=== PATIENT | male | born 1990 | race African-American/Black ===

== ENCOUNTER 2017-03-08 05:51 | Day surgery (SDC) | payer OTHER ==
[2017-03-08] VITALS (10 sets, daily range): BP systolic 85–128; BP diastolic 49–66; PULSE 68–92; RESP 0–26; Ht 191.8 cm; Wt 142.2 kg
[~2017-03-08] VITALS: Ht 191.8 cm; Wt 142.2 kg
[2017-03-08 06:34] LABS: ADD SCAN DIFF NO
[2017-03-08 06:37] LABS: BASOPHILS % 0.4 % (0.0-2.0); EOSINOPHILS # 0.1 10^3/ul (0.0-0.5); EOSINOPHILS % 1.6 % (0.0-7.0); HEMATOCRIT 43.3 % (42.0-52.0); LYMPHOCYTES # 3.8 10^3/ul (0.8-2.9); LYMPHOCYTES % 42.1 % (15.0-51.0); MEAN CORPUSCULAR HEMOGLOBIN 28.7 pg (29.0-33.0); MEAN CORPUSCULAR HGB CONC 32.3 g/dl (32.0-37.0); MEAN CORPUSCULAR VOLUME 88.9 fl (82.0-101.0); MONOCYTE # 0.6 10^3/ul (0.3-0.9); MONOCYTES % 6.2 % (0.0-11.0); NEUTROPHIL # 4.5 10^3/ul (1.6-7.5); NEUTROPHILS % 49.4 % (39.0-77.0); PLATELET COUNT 231 10^3/UL (140-415); RED BLOOD COUNT 4.87 10^6/ul (4.70-6.10); RED CELL DISTRIBUTION WIDTH 13.3 % (11.5-14.5)
[2017-03-08] MEDS ORDERED: BUPIVACAINE 0.25%/EPI (SDV) 30 ML INJ ONE (06:56)
[2017-03-08] MEDS ORDERED: LIDOCAINE 1% (MPF) 30 ML INJ ONE (06:56)
[2017-03-08 06:58] LABS: INR 0.84; PROTIME 11.5 Sec (12.2-14.2); PT RATIO 0.9
[2017-03-08 06:59] LABS: PARTIAL THROMBOPLASTIN TIME 31.5 Sec (25.0-35.0)
[2017-03-08 07:00] LABS: ALBUMIN 4.5 g/dl (3.3-4.9); ALBUMIN/GLOBULIN RATIO 1.55; BILIRUBIN,INDIRECT 0.1 mg/dl (0-1.1); BILIRUBIN,TOTAL 0.1 mg/dl (0.2-1.3); TOTAL PROTEIN 7.4 g/dl (6.1-8.1)
[2017-03-08 07:02] LABS: CALCIUM 9.2 mg/dl (8.4-10.2); CREATININE 1.09 mg/dl (0.61-1.24)
[2017-03-08] MEDS ORDERED: MIDAZOLAM 1 MG/ML 2 ML INJ ONE (07:21)
[2017-03-08] MEDS ORDERED: PROPOFOL 40 ML ONE (07:21)
[2017-03-08] MEDS ORDERED: FENTAnyl 50 MCG/ML VIAL ONE ×2 (07:21→09:03)
--- NOTE | 2017-03-08 07:37 | HPN ---
Date/Time of Note Date/Time of Note DATE: 03/08/17 TIME: 07:36 Interval H&P Admission Note Pt. seen H&P reviewed: No system changes DUONG VILLASEÑOR MD March 08, 2017 07:37
[2017-03-08] MEDS ORDERED: LACTATED RINGER'S 1,000 ML IV* SCH (08:00)
[2017-03-08] MEDS ORDERED: CIPROFLOXACIN 400 MG in D5W 200 ML IVPB SCH (08:00)
[2017-03-08] MEDS ORDERED: CEFAZOLIN 1 GM INJ ONE (08:03)
[2017-03-08] MEDS ORDERED: LIDOCAINE 2%/EPI 30 ML INJ ONE (08:10)
[2017-03-08] MEDS ORDERED: GENTAMICIN 80 MG/NS (PMX) 50 ML ONE (08:19)
[2017-03-08] MEDS ORDERED: KETOROLAC 30 MG INJ ONE (08:39)
[2017-03-08] MEDS ORDERED: METOCLOPRAMIDE 10 MG INJ ONE (08:39)
[2017-03-08] MEDS ORDERED: ONDANSETRON 4 MG INJ ONE (08:39)
[2017-03-08] MEDS ORDERED: DEXAMETHASONE 4 MG/ML 1 ML INJ ONE (08:39)
[2017-03-08] MEDS ORDERED: EPHEDrine SULFATE 50 MG/5 ML SYG IV PRN (09:00)
[2017-03-08] MEDS ORDERED: METOCLOPRAMIDE 10 MG INJ IV PRN (09:00)
[2017-03-08] MEDS ORDERED: DIPHENHYDRAMINE 50 MG INJ IV PRN (09:00)
[2017-03-08] MEDS ORDERED: HYDROmorphONE (0.2 MG/ML) 10ML SYG IV PRN ×3 (09:00)
[2017-03-08] MEDS ORDERED: MEPERIDINE 25 MG INJ IV PRN (09:00)
[2017-03-08] MEDS ORDERED: morphine (1 MG/ML) 10ML SYRINGE IV PRN ×3 (09:00)
[2017-03-08] MEDS ORDERED: OXYCODONE/ACETAMINOPHEN (5/325) TAB PO PRN ×2 (09:00)
[2017-03-08] MEDS ORDERED: LABETALOL HCL 20MG INJ IV PRN (09:00)
[2017-03-08] MEDS ORDERED: ONDANSETRON 4 MG INJ IV PRN ×2 (09:00→10:00)
[2017-03-08] MEDS ORDERED: LACTATED RINGER'S 1,000 ML IV SCH ×2 (09:50)
[2017-03-08] MEDS ORDERED: SUCCINYLCHOLINE CHLORIDE 100 MG/5 ML SYG IV ONE (09:55)
[2017-03-08] MEDS ORDERED: morphine 2 MG INJ IV PRN (10:00)
[2017-03-08] MEDS ORDERED: HYDROCODONE/APAP (5/325) TAB PO PRN ×2 (10:00)
--- NOTE | 2017-03-09 07:29 | OPR ---
DATE OF OPERATION: 03/08/2017 SURGEON: Dutch Villaseñor MD AUTOMOTIVE CONSULTANT: None. ANESTHESIA: General and local. ANESTHESIOLOGIST: Dr. Issa PREOPERATIVE DIAGNOSIS: Subcutaneous mass, right shoulder area. POSTOPERATIVE DIAGNOSIS: Subcutaneous mass, right shoulder area, pending pathology report. PROCEDURE: Wide excision of the firm mass. ESTIMATED BLOOD LOSS: 5 mL. INDICATION: This is a 26-year-old gentleman who presented to the office because he felt a mass in the right shoulder area. Mother stated that it has been there for a while, but they think that it has been growing recently, with some discomfort, so patient wanted that to be removed just to be on the safe side. On physical examination it was around 3x3 cm, firm mass resembling, to my clinical judgment, a dermoid cyst, so I requested a CT scan of the shoulder and it reported that there is no connection to the muscle and its subcutaneous tissue, so I decided to remove it. Discussed with the patient the alternatives of treatment, risks and benefits of operation, possible complications including but not limited to bleeding, chronic pain, need for further operation in future in the case this proves to be something unexpected, and deformity of the area, especially that the patient has tattoos over this. The patient and mother understood, accepted that we would proceed with operation. PROCEDURE IN DETAIL: The patient brought to the operating room, placed on operating table in supine position. Anesthesia was induced by the anesthesiologist, 2 grams of Ancef and 80 mg of gentamicin was given IV by the anesthesiologist. Position of the patient was changed to a slightly left down decubitus. The area of operation was prepped with chlora solution, draped in a sterile fashion. All through the operation, a mixture of 30 mL of 0.25% Marcaine with epinephrine, plus 20 mL of 2% Xylocaine with epinephrine was used. After thorough examination under anesthesia, decision was made to make the incision transversely, though I told the patient before that most probably I am going to make a longitudinal, but it appeared that this is going to be easier for removing the tumor, so transverse skin incision was made about 7 cm. Local injection was used, carried down to the subcutaneous tissue and as I tried to make a superior flap to go around the mass, it was very easy to put a finger around it and looked that it was enucleated from the capsule or pseudocapsule that was surrounding it; so anyway, the core of the mass was completely removed easily. It was oriented, inferior border, anterior border, medial border, were sent for pathologic evaluation. As I further examined the area, I felt that there was more of the mass left in the area which probably was broken off from the bulk of the mass; so further excision going all around the superior, inferior, medial and lateral borders was performed and a kind of capsule of the previously mentioned mass was excised posteriorly, it was down to the fascia of the deltoid muscle. At this time, I requested pathologist to come in to give some guidance. Dr. Gonzalez, pathologist, walked in; I showed him the mass. I requested frozen section. He stated that it is better to do permanent because a frozen section for these soft tissue tumors is not going to be of that much of helpful. Therefore, I irrigated the wound and inspected more. There was inferiorly an area of fat; did not look like the normal fat, so I excised that part, too and marked it as an inferolateral margin of the mass and oriented, and was sent for pathologic evaluation; therefore, we had 3 samples, A, B and C for evaluation. The A was CORE of the tumor; the B was the surrounding of the tumor and C was the inferolateral margin of the area. Wound was thoroughly irrigated. More local anesthetic was injected under the fascia of the muscle and all around the tissues. Local flap advancement was developed to help approximation of the wound. It appeared that I could not do a 2-layer closure; therefore, a Phoenix-Carrillo drain was introduced through the separate skin incision inferior to the wound and was placed under the skin. It should be mentioned that some of the defect after removing the tumor, because the tumor was about 3 x 4 x 4 cm, and the patient is very muscular, and other parts of the arm tissues, the skin has about 3 to 4 cm subcutaneous fat; therefore, I mobilized superior and inferior flaps locally and advanced it, so that it could be closed easily and so the skin could reach down to the fascia. After preparation was made, the skin was closed in 1 layer using Prolene vertical mattress, simple and interrupted, alternative sutures were placed, and at the end the Phoenix-Carrillo was activated and bulky dressing was applied and pushed down just to help the skin reach down to the bottom of the cavity of the tumor. The patient tolerated procedure well. Sponge, needle and instrument count reported correct x2. Estimated blood loss 5 mL. The bulky dressing was applied. Patient was extubated and transferred to recovery room in stable condition. Dictated By: DUTCH VILLASEÑOR MD PS/JACK Conf#: [id number] DID#: [id number] MTDD
== END 2017-03-08 11:50 | disposition home or self-care (01) ==
LOC: SDS 05:51
DX: C49.11 Malignant neoplasm of connective and soft tissue of right upper limb, including shoulder (principal)
CPT/HCPCS: 23071; 80053; 85025; 85610; 85730; 88307; 88341; 88342; J0690; J1100; J1580; J1885; J2250; J2405; J2765; J3010; J7999; Z7512; Z7610

== ENCOUNTER 2017-04-28 05:54 | Day surgery (SDC) | payer OTHER ==
[2017-04-28] VITALS (8 sets, daily range): BP systolic 130–155; BP diastolic 65–124; PULSE 68–104; RESP 14–20; Ht 190.5 cm; Wt 146.0 kg
[~2017-04-28] VITALS: Ht 190.5 cm; Wt 146.0 kg
[2017-04-28] MEDS ORDERED: SOD CHLORIDE 0.9% 1,000 ML IV SCH (07:00)
[2017-04-28] MEDS ORDERED: CEFAZOLIN 1 GM INJ ONE ×2 (07:00→09:25)
[2017-04-28] MEDS ORDERED: SUCCINYLCHOLINE CHLORIDE 100 MG/5 ML SYG IV ONE (07:00)
[2017-04-28 08:20] LABS: ADD SCAN DIFF NO
[2017-04-28 08:36] LABS: BASOPHILS % 0.4 % (0.0-2.0); EOSINOPHILS # 0.2 10^3/ul (0.0-0.5); EOSINOPHILS % 2.2 % (0.0-7.0); HEMATOCRIT 40.8 % (42.0-52.0); HEMOGLOBIN 13.3 g/dl (14.0-18.0); LYMPHOCYTES # 2.9 10^3/ul (0.8-2.9); LYMPHOCYTES % 39.9 % (15.0-51.0); MEAN CORPUSCULAR HGB CONC 32.6 g/dl (32.0-37.0); MEAN CORPUSCULAR VOLUME 88.9 fl (82.0-101.0); MEAN PLATELET VOLUME 10.6 fl (7.4-10.4); MONOCYTE # 0.4 10^3/ul (0.3-0.9); NEUTROPHIL # 3.8 10^3/ul (1.6-7.5); NEUTROPHILS % 51.2 % (39.0-77.0); PLATELET COUNT 232 10^3/UL (140-415); RED BLOOD COUNT 4.59 10^6/ul (4.70-6.10); RED CELL DISTRIBUTION WIDTH 13.5 % (11.5-14.5); WHITE BLOOD COUNT 7.3 10^3/ul (4.8-10.8)
[2017-04-28 08:46] LABS: ALBUMIN 3.8 g/dl (3.3-4.9); ALBUMIN/GLOBULIN RATIO 1.18; BILIRUBIN,INDIRECT 0.1 mg/dl (0-1.1); BILIRUBIN,TOTAL 0.1 mg/dl (0.2-1.3)
[2017-04-28 08:48] LABS: INR 0.87; PROTIME 11.8 Sec (12.2-14.2); PT RATIO 0.9
[2017-04-28 08:49] LABS: PARTIAL THROMBOPLASTIN TIME 32.5 Sec (25.0-35.0)
[2017-04-28 09:08] LABS: CREATININE 1.01 mg/dl (0.61-1.24); POTASSIUM 4.2 mmol/L (3.5-5.1)
[2017-04-28] MEDS ORDERED: NEOSTIGMINE 3 MG/3 ML SYRINGE ONE (09:25)
[2017-04-28] MEDS ORDERED: GLYCOPYRROLATE 0.4 MG INJ ONE (09:25)
[2017-04-28] MEDS ORDERED: MIDAZOLAM 1 MG/ML 2 ML INJ ONE (09:25)
[2017-04-28] MEDS ORDERED: ROCURONIUM 50 MG INJ ONE (09:25)
[2017-04-28] MEDS ORDERED: PROPOFOL 20 ML ONE (09:25)
[2017-04-28] MEDS ORDERED: DEXAMETHASONE 4 MG/ML 1 ML INJ ONE (09:26)
[2017-04-28] MEDS ORDERED: FENTAnyl 50 MCG/ML VIAL ONE (09:26)
[2017-04-28] MEDS ORDERED: ONDANSETRON 4 MG INJ ONE (09:26)
[2017-04-28] MEDS ORDERED: LIDOCAINE 2%/EPI 30 ML INJ ONE (09:28)
[2017-04-28] MEDS ORDERED: LIDOCAINE 2%/EPI (MDV) 20ML INJ INJ ONE (09:33)
[2017-04-28] MEDS ORDERED: EPHEDrine SULFATE 50 MG/5 ML SYG IV PRN (10:30)
[2017-04-28] MEDS ORDERED: MEPERIDINE 25 MG INJ IV PRN (10:30)
[2017-04-28] MEDS ORDERED: hydrALAzine 20 MG INJ IV PRN (10:30)
[2017-04-28] MEDS ORDERED: TRIMETHOBENZAMIDE 100 MG/ML VIAL IM PRN (10:30)
[2017-04-28] MEDS ORDERED: LABETALOL HCL 20MG INJ IV PRN (10:30)
[2017-04-28] MEDS ORDERED: MIDAZOLAM 1 MG/ML 2 ML INJ IV PRN (10:30)
[2017-04-28] MEDS ORDERED: FENTAnyl 50 MCG/ML VIAL IV PRN ×3 (10:30)
[2017-04-28] MEDS ORDERED: DIPHENHYDRAMINE 50 MG INJ IV PRN (10:30)
[2017-04-28] MEDS ORDERED: HYDROmorphONE (0.2 MG/ML) 10ML SYG IV PRN ×3 (10:30)
[2017-04-28] MEDS ORDERED: ONDANSETRON 4 MG INJ IV PRN (10:30)
[2017-04-28] MEDS ORDERED: OXYCODONE/ACETAMINOPHEN (5/325) TAB PO PRN ×2 (10:30)
[2017-04-28] MEDS ORDERED: HYDROCODONE/APAP (5/325) TAB PO ONE (11:00)
[2017-04-29] MEDS ORDERED: IBUP-1542 PO (20:34)
--- NOTE | 2017-05-01 04:39 | OPR ---
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 PROCEDURE PERFORMED: Wide local excision of dermatofibrosarcoma protuberans right upper extremity with local skin flap advancement closure. SURGEON: Juan Bowman MD. BOX SEALING MACHINE OPERATOR: Davis Gentile MD. ANESTHESIA: General. ANESTHESIOLOGIST: Paddy Childers MD. INDICATIONS FOR PROCEDURE: The patient is a 26-year-old male presenting with a right upper extremity mass. He underwent resection of the mass by a general surgeon and intraoperatively the pathology was suspicious for sarcoma. The general surgeon took some additional tissue but the final pathology revealed multiple positive margins. The patient presented for surgical oncology evaluation. Both he and his mother were counseled as to the need for reexcision with wide margins and local skin flap advancement closure. They consented and he was scheduled for surgery. DESCRIPTION OF PROCEDURE: The patient was brought to the operating theater and placed under general anesthesia. The right shoulder and upper extremity were prepped and draped in the usual sterile fashion. The previous surgical incision was reincised and extended both anteriorly and posteriorly for an additional distance of 2-3 cm in each direction. The subcutaneous tissue was then dissected with cautery. The biopsy cavity was identified. Skin edges were elevated with skin hooks and wide circumferential 360 degree resection of the previous biopsy cavity took place down to the fascia of the deltoid muscle. The specimen was then transected, oriented and the attending pathologist Dr. Martina Gonzalez was called into the the room. Dr. Bowman and Dr. Gonzalez discussed the orientation and the specimen was then inked and sent for permanent pathologic analysis. The wound was irrigated, minimal bleeding was controlled with cautery. Due to the tightness of the skin in this area additional mobilization of both proximal and distal skin flaps took place with cautery, the flaps were rotated together. Prior to final closure a number 7 RUY drain was brought through the posterior aspect of the upper extremity, cut to size, laid within the wound cavity and secured in place with 2-0 nylon sutures in standard fashion, and final skin approximation then took place with 2-0 nylon sutures in vertical mattress fashion. Sterile dressing was then applied. The patient tolerated the procedure well. The estimated blood loss was 20 mL. There were no complications. The patient was transported in stable condition to the recovery room. Dictated By: Juan Bowman MD /anthony/etelvina /Document#: [id number]
== END 2017-04-28 12:30 | disposition home or self-care (01) ==
LOC: SDS 05:54
PROVIDERS: ATTEND Surgery Surgical Oncology
DX: D23.61 Other benign neoplasm of skin of right upper limb, including shoulder (principal)
CPT/HCPCS: 14000; 80053; 85025; 85610; 85730; 88305; J0690; J1100; J2250; J2405; J3010; J7999; Z7512; Z7610; J2710

== ENCOUNTER 2017-04-29 17:19 | Emergency (ER) | payer OTHER ==
[~2017-04-29] VITALS: Ht 190.5 cm; Wt 147.0 kg
[2017-04-29 17:22] VITALS: Ht 190.5 cm; Wt 147.0 kg
--- NOTE | 2017-04-29 19:52 | ERD ---
ER Documentation Chief Complaint Date/Time DATE: 04/29/17 TIME: 19:47 Chief Complaint C/O SORE THROAT , EYE REDNESS X 1 DAY HAD RT SHOULDER SURGEY 04/28/17 HPI This is a 26-year-old male presenting with mother to the emergency department with sore throat after surgery yesterday. 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 Patient was put under general anesthesia and an ET tube was placed. Patient states after surgery he had sore throat. No difficulty swallowing or drooling. No muffled voice. No fevers or chills. Patient also has bilateral sub-conjunctival hemorrhage. No vision changes or vision loss. No blurry vision. No eye pain. Patient and mother are concerned because patient has had surgery before without these complications. ROS All systems reviewed and are negative except as per history of present illness. Medications Home Meds Active Scripts Ibuprofen* (Motrin*) 600 Mg Tab, 600 MG PO Q6, #20 TAB Prov:ISAURO AVILES NP 04/29/17 Allergies Allergies: Coded Allergies: Penicillins (Verified Allergy, Unknown, rash, 04/29/17) PMhx/Soc History of Surgery: Yes (skin flap and closure to rt shoulder) Anesthesia Reaction: No Hx Neurological Disorder: No Hx Respiratory Disorders: No Hx Cardiac Disorders: No Hx Psychiatric Problems: No Hx Miscellaneous Medical Probl: No Hx Alcohol Use: No Hx Substance Use: No Hx Tobacco Use: No Smoking Status: Never smoker Physical Exam Vitals Vital Signs Date Time Temp Pulse Resp B/P Pulse Ox O2 Delivery O2 Flow Rate FiO2 04/29/17 17:22 98.1 73 18 117/73 97 Physical Exam Const: No acute distress, alert Head: Atraumatic Eyes: Bilateral Subconjunctival hemorrhage, PERRL ENT: Normal External Ears, Nose and Mouth. No erythema or exudate to posterior pharynx. No laceration or bleeding. Neck: Full range of motion..~ No meningismus. Resp: Clear to auscultation bilaterally. No wheezing Cardio: Regular rate and rhythm, no murmurs Abd: Soft, non tender, non distended. Normal bowel sounds Skin: No petechiae or rashes Back: No midline or flank tenderness Ext: No cyanosis, or edema Neur: Awake and alert Psych: Normal Mood and Affect Results 24 hrs Current Medications Medications (Trade) Dose Ordered Sig/Jordi Route PRN Reason Start Time Stop Time Status Last Admin Dose Admin IV Flush 10 ml 10 ml STK-MED ONCE .ROUTE 04/29/17 20:08 04/29/17 20:09 DC Sodium Chloride (NS) 100 ml @ ud STK-MED ONCE .ROUTE 04/29/17 20:08 04/29/17 20:09 DC Iohexol (Omnipaque 300mg/ ml) 150 ml STK-MED ONCE .ROUTE 04/29/17 20:08 04/29/17 20:09 DC Procedures/[place] [id number] Radiology Main Line: [phone] DIAGNOSTIC IMAGING REPORT Patient: ALICIA WEST : 1990 Age: 26 Sex: M MR #: [id number] DOS: 04/29/17 1847 Ordering MD: ISAURO AVILES NP Location: [facility] Room/Bed: PROCEDURE: CT soft tissue neck with contrast CLINICAL INDICATION: Neck pain following surgery TECHNIQUE: A CT of the neck was performed utilizing axial sections from the from the thoracic inlet through the skull base with contrast. Axial images only are submitted to the PACS 100 cc of Omnipaque-300 intravenous contrast was administered. The exam CTDI vol = 10.81 mGy and DLP = 302.04 mGy-cm. COMPARISON: None available FINDINGS: Visualized intracranial structures and skull base: The included portions of the cerebral hemispheres and posterior fossa are unremarkable with the fourth ventricle midline. The mastoid air cells and included paranasal sinuses are clear. Nasopharynx, oropharynx and tongue base: The tonsils are normal and symmetric in size. The parapharyngeal fat planes are preserved and symmetric. No nasopharyngeal mass is present. The tongue base is unremarkable. Some dental amalgam artifact limits fine evaluation of these regions. Parotid and photoengraving photographer spaces: The glands are normal in size and homogeneous in attenuation without mass or inflammation. The muscles of mastication and temporomandibular joints are normal bilaterally. Carotid spaces: The lymph nodes are normal in size bilaterally. No mass lesion or extraluminal gas is demonstrated. There is no fat inflammation. The vasculature is unremarkable bilaterally. Submandibular and submental spaces: The glands and lymph nodes are normal. There is no evidence of calcification. The sublingual space is unremarkable. Posterior triangles: Reactive type lymph nodes in the right greater than left spinal accessory chain are present without meeting the criteria for adenopathy. Larynx and infraglottic airway: The epiglottis, aryepiglottic folds, vocal cords and piriform sinuses are unremarkable. No intrinsic tracheal abnormality is demonstrated. Visceral space: The thyroid gland is normal in size. The cervical esophagus is normal in caliber and there is no evidence of extraluminal gas. The cervical esophagus is unremarkable. Supraclavicular fossae: No evidence of adenopathy or mass lesion. Visualized thorax: No evidence of pulmonary infiltrates or superior mediastinal abnormality. Cervical spine: No evidence of fracture, lytic or blastic lesion. The reversal of the normal cervical lordosis may be from muscle spasm. RPTAT:HJJR IMPRESSION: Unremarkable CT of the neck with contrast without findings to explain the patient's provided history. MDM: 26 year old male presents to the ED for sore throat and bilateral subconjunctival hemorrhage 1 day after surgery. Patient had right shoulder sarcoma mass removed yesterday by Dr. Bowman. Patient now complains of sore throat. No difficulty swallowing or drooling. No muffled voice. No fevers or chills. Vital signs are stable. No signs or symptoms of respiratory distress. No wheezing, rhonchi or crackles. Lung exam and ENT exam are normal. Consulted Dr. Wynn regarding this patient who also examined patient. Dr. Wynn suggested getting CT soft tissue w/ contrast. IV access obtained per [place]. CT soft tissue neck reviewed by radiologist is unremarkable. Patient likely has sore throat s/p surgery requiring ET tube placement. Patient is appropriate for outpatient management will be given prescription for ibuprofen. Instructed patient to follow-up with surgeon Dr. Bowman or PCP in the next week for reassessment. Return to ED for any high fever, chest pain, difficulty breathing, shortness breath, wheezing, vomiting, diarrhea, abdominal pain or any new or worsening symptoms. Patient verbalizes understanding. All questions answered at discharge. Departure Diagnosis: Primary Impression: Sore throat Condition: Stable ISAURO AVILES NP Apr 29, 2017 19:52
[2017-04-29] MEDS ORDERED: SOD CHLORIDE 0.9% 100 ML ONE (20:08)
[2017-04-29] MEDS ORDERED: IOHEXOL 300MG/ML 150 ML BTL ONE (20:08)
[2017-04-29] MEDS ORDERED: IBUP-1542 PO (20:34)
--- NOTE | 2017-04-29 20:40 | RADRPT ---
PROCEDURE: CT soft tissue neck with contrast CLINICAL INDICATION: Neck pain following surgery TECHNIQUE: A CT of the neck was performed utilizing axial sections from the from the thoracic inle t through the skull base with contrast. Axial images only are submitted to the PACS 100 cc of Omnipa que-300 intravenous contrast was administered. The exam CTDI vol = 10.81 mGy and DLP = 302.04 mGy-cm . COMPARISON: None available FINDINGS: Visualized intracranial structures and skull base: The included portions of the cerebral hemispheres and posterior fossa are unremarkable with the fourth ventricle midline. The mastoid air cells and included paranasal sinuses are clear. Nasopharynx, oropharynx and tongue base: The tonsils are normal and symmetric in size. The paraphary ngeal fat planes are preserved and symmetric. No nasopharyngeal mass is present. The tongue base i s unremarkable. Some dental amalgam artifact limits fine evaluation of these regions. Parotid and parachute cushion installer spaces: The glands are normal in size and homogeneous in attenuation without mass or inflammation. The muscles of mastication and temporomandibular joints are normal bilaterall y. Carotid spaces: The lymph nodes are normal in size bilaterally. No mass lesion or extraluminal gas i s demonstrated. There is no fat inflammation. The vasculature is unremarkable bilaterally. Submandibular and submental spaces: The glands and lymph nodes are normal. There is no evidence of calcification. The sublingual space is unremarkable. Posterior triangles: Reactive type lymph nodes in the right greater than left spinal accessory chain are present without meeting the criteria for adenopathy. Larynx and infraglottic airway: The epiglottis, aryepiglottic folds, vocal cords and piriform sinus es are unremarkable. No intrinsic tracheal abnormality is demonstrated. Visceral space: The thyroid gland is normal in size. The cervical esophagus is normal in caliber an d there is no evidence of extraluminal gas. The cervical esophagus is unremarkable. Supraclavicular fossae: No evidence of adenopathy or mass lesion. Visualized thorax: No evidence of pulmonary infiltrates or superior mediastinal abnormality. Cervical spine: No evidence of fracture, lytic or blastic lesion. The reversal of the normal cervic al lordosis may be from muscle spasm. RPTAT:HJJR IMPRESSION: Unremarkable CT of the neck with contrast without findings to explain the patient's provided history . Bereket Olson, Physician Date Time Electronically viewed and signed by Bereket Olson, Physician on 04/29/2017 20:40 JR/
== END 2017-04-29 20:49 | disposition home or self-care (01) ==
LOC: FTE 17:19
DX: J02.9 Acute pharyngitis, unspecified (principal)
CPT/HCPCS: 70490; Q9967; Z7502; Z7610